=== PATIENT | female | born 1990 | race Caucasian/White ===

== ENCOUNTER → 2017-01-09 | Outpatient (CLI) | payer BC ==
[~2017-01-09] MED LIST: AMOX500C5 PO; BUTA1CAP42 PO; CODE-54 PO; CYCL-265 PO; NITR100C3 PO; ONDA8TAB13 PO; PRD10T PO
[2017-01-09 17:02] VITALS: BP 125/80
--- NOTE | 2017-01-09 17:02 | Urgent Care T Sheet Gen (E) ---
Intake General Temperature (Fahrenheit): 98.5 Pulse: 103 Blood Pressure Systolic: 125 Blood Pressure Diastolic: 80 Respirations: 18 SPO2: 98 Description of Symptoms Patient presents with illness since yesterday. Notes temp of 99, malaise, sore throat and cough. Neck feels sore. No meds to treat her symptoms. No one else in the home is sick. History of Present Illness Allergies: Coded Allergies: No Known Allergies (Verified Allergy, Unknown, 03/28/16) Home Meds Active Scripts Nitrofurantoin/Nitrofuran Mac (Macrobid)100 Mg [id number] Mg PO BID Infection 3 Days Ref 0 Prov:ANNELIESE SEGOVIA MD 03/28/16 Respiratory Constitutional Symptoms: Malaise EENTM: Throat pain Respiratory: Cough Cardiovascular: No symptoms reported Gastrointestinal/Abdominal: No symptoms reported Estimated Date of Delivery: 08/22/16 Musculoskeletal: Muscle pain Neck pain All Other Systems Reviewed Remaining Systems: All other systems reviewed with negative findings Past [id number]-[id number] Hx Patient's Social History Alcohol Use: Past History Smoking Status: Never smoker Recent foreign travel: No Surgeries/Hospitalizations Hospitalization/Surgery Hx: DX WITH UTERINE FIBROIDS IN 2014 Respiratory Respiratory History: None Cardiovascular Cardiovascular History: None Reproductive System : 1 Sexually Transmitted Diseases: No Gastrointestinal GI/Endocrine History: None Diabetes Diabetes: No HEENT Impaired Vision: Contacts, Glasses Hearing Impaired: None Integumentary Integumentary History: Recent skin changes Comment: REDNESS TO LT AXILLARY AREA Psychosocial Behavior Disorders: None Physical Exam Physical Exam General Appearance: WD/WN No apparent distress Eyes, Ears, Nose, Throat Ex: TMs normal Pharyngeal erythema (cobblestone appearance. irritated but doesn't appear infected.) Other (nose is clear) Neck Exam: SuppleNo Lymphadenopathy Respiratory Exam: Lungs clear Normal breath sounds Cardiovascular Exam: Regular rate, rhythm Departure Urgent Care Impression Impression: Primary Impression: URI (upper respiratory infection) Qualified Code: J00 - Acute nasopharyngitis [common cold] Departure Disposition: HOME OR SELF-CARE Condition: Stable Referrals: INGRID WOODALL MD (PCP) Additional Instructions: The patient appears to have a viral URI which is causing her malaise, low grade temp and mild cough. Rest. Fluids Treat symptomatically If no better in a week, she may call the office and at that time, I would consider starting her on an antibiotic Good handwashing. Lysol common areas to prevent spreading Return as needed patient understands DC instructions. All questions were answered. End of report . BETTINA LAM January 09, 2017 16:46
== END ==
LOC: MHUC 16:43
PROVIDERS: ATTEND Physician Assistant
DX: J00 Acute nasopharyngitis [common cold] (principal)
CPT/HCPCS: 99213

== ENCOUNTER 2017-01-11 08:19 | Emergency (ER) | payer BC ==
[~2017-01-11] VITALS: Ht 172.7 cm; Wt 77.4 kg
[~2017-01-11 08:19] MED LIST changes: -AMOX500C5 PO; -BUTA1CAP42 PO; -ONDA8TAB13 PO; -PRD10T PO
[2017-01-11] MEDS ORDERED: diphenhydrAMINE 50 MG/ML INJ (BENADRYL) IV ONE (08:50)
[2017-01-11] MEDS ORDERED: NS IV 500 ML 500 ML IV SCH (08:50)
[2017-01-11] MEDS ORDERED: METOCLOPRAMIDE 10 MG/2 ML (REGLAN) VIAL IV ONE (08:50)
[2017-01-11] MEDS ORDERED: KETOROLAC 30 MG/ML (TORADOL) 1 ML VIAL IV ONE (08:50)
[2017-01-11] MEDS ORDERED: PRD10T PO (08:59)
[2017-01-11] MEDS ORDERED: AMOX500C5 PO (08:59)
[2017-01-11] MEDS ORDERED: ONDA8TAB13 PO (08:59)
--- NOTE | 2017-01-11 09:27 | NUR ---
left ear irrigation, pt states she can hear again, large amt of wax was removed
[2017-01-11] MEDS ORDERED: BUTA1CAP42 PO (09:58)
[2017-01-11 12:22] VITALS: BP 112/67
== END 2017-01-11 10:09 | disposition home or self-care (01) ==
LOC: ED 08:21
DX: G44.209 Tension-type headache, unspecified, not intractable (principal); B34.9 Viral infection, unspecified
CPT/HCPCS: 96361; 96374; 96375; 99285; J1200; J1885; J2765; J7040; 99283